=== PATIENT | female | born 1945 | race Hispanic/Latino ===

== ENCOUNTER 2020-12-16 11:30 | Outpatient (RCR) | payer MEDICARE ==
[~2020-12-16 11:30] MED LIST: FENTANYL CITRATE/PF 100MCG/2 ML INJ ONE; MIDAZOLAM HCL 2 MG/2 ML VIAL ONE
== END 2020-12-21 ==
LOC: PT 11:30
PROVIDERS: ATTEND Specialist
DX: M17.12 Unilateral primary osteoarthritis, left knee (principal)
CPT/HCPCS: 97110; 97161; J2250; J3010

== ENCOUNTER 2021-01-04 08:52 | Outpatient (RCR) | payer MEDICARE | END 2021-01-20 | LOC: PT 08:52 | PROVIDERS: ATTEND Specialist | DX: M17.12 Unilateral primary osteoarthritis, left knee (principal) ==